=== PATIENT | female | born 1990 | race Two or more races ===

== ENCOUNTER 2017-09-04 18:11 | Emergency (ER) | payer SELFPAY ==
[~2017-09-04] VITALS: Ht 167.6 cm; Wt 56.7 kg
[~2017-09-04 18:11] MED LIST: ALBU18HF2 INH; FLUT1DIS3 IH
[2017-09-04] MEDS ORDERED: LORAZEPAM 1 MG TABLET PO ONE (19:00)
[2017-09-04] MEDS ORDERED: IV NS 0.9% 1,000 ML BAG IV ONE ×3 (19:00→22:30)
--- NOTE | 2017-09-04 19:00 | NUR ---
BB RA; PALPITATIONS, NAD NOTED, VSS, RESP EVEN AND UNLABORED. PT PUT ON MONITOR AND HOSPITAL GOWN. WAITING FOR MD [place].
[2017-09-04] MEDS ORDERED: LORAZEPAM 1 MG TABLET ONE (19:07)
[2017-09-04 22:24] VITALS: BP 111/57
== END 2017-09-04 23:25 | disposition home or self-care (01) ==
LOC: ER 18:14
DX: R00.2 Palpitations (principal); E86.0 Dehydration; F41.9 Anxiety disorder, unspecified; J45.909 Unspecified asthma, uncomplicated; F10.10 Alcohol abuse, uncomplicated
CPT/HCPCS: A4606; J7030; Z7610

== ENCOUNTER 2025-01-02 13:57 | Emergency (ER) | payer OTHER ==
[~2025-01-02] VITALS: Ht 162.6 cm; Wt 68.0 kg
[2025-01-02] MEDS: IV NS 0.9% 1,000 ML BAG IV ONE (14:25)
[2025-01-02 14:31] LABS: BASOPHILS % (AUTO) 0.5 % (0.0-2.0); EOSINOPHILS # (AUTO) 0.3 K/uL (0.0-0.7); EOSINOPHILS % (AUTO) 2.9 % (0.0-6.0); HEMATOCRIT 37 % (33-45); HEMOGLOBIN 12.5 g/dL (11.5-14.8); LYMPHOCYTES # (AUTO) 2.1 K/uL (0.8-4.8); LYMPHOCYTES % (AUTO) 22.6 % (20.0-44.0); MEAN CORPUSCULAR HEMOGLOBIN 30 PG (26.0-33.0); MEAN CORPUSCULAR HGB CONC 34 g/dl (31.0-36.0); MEAN CORPUSCULAR VOLUME 89 fL (82-100); MONOCYTES # (AUTO) 0.6 K/uL (0.1-1.30); MONOCYTES % (AUTO) 6.5 % (2.0-12.0); NEUTROPHILS # (AUTO) 6.2 K/uL (1.8-8.9); NEUTROPHILS % (AUTO) 67.5 % (43.0-81.0); PLATELET COUNT (AUTO) 350 K/uL (150-450); RED BLOOD CELL COUNT(AUTO) 4.19 MIL/uL (4.0-5.2); RED CELL DISTRIBUTION WIDTH 15.3 % (11.5-15.0); WHITE BLOOD COUNT (AUTO) 9.1 K/uL (4.3-11.0)
[2025-01-02 14:37] LABS: PREGNANCY TEST URINE QUAL NEGATIVE (NEGATIVE)
[2025-01-02 14:38] LABS: CALCIUM, SERUM 8.7 mg/dL (8.5-10.1); CREATININE 0.7 mg/dL (0.6-1.3); POTASSIUM 3.8 mmol/L (3.5-5.1)
[2025-01-02 17:16] LABS: APPEARANCE,URINE CLOUDY (CLEAR); COLOR,URINE RED (YELLOW)
[2025-01-02 17:20] LABS: RBC,URINE TOO NUMEROUS TO COUN /HPF (0-2); SQUAMOUS EPITHELIAL CELL,UR None Seen /HPF (None Seen); WBC,URINE 0-2 /HPF (0-3)
[2025-01-02 17:21] LABS: BACTERIA,URINE Rare /HPF (None Seen)
[2025-01-02 19:12] VITALS: BP 119/63; TEMP 97.7; O2SAT 100
== END 2025-01-02 19:10 | disposition home or self-care (01) ==
LOC: ER 14:00
DX: I95.1 Orthostatic hypotension (principal); J45.909 Unspecified asthma, uncomplicated; R10.31 Right lower quadrant pain; Z79.51 Long term (current) use of inhaled steroids; F41.9 Anxiety disorder, unspecified; Z87.448 Personal history of other diseases of urinary system
CPT/HCPCS: 99285; 96360; 76856; 71045; 93005; 85025; 80048; 84703; 81001; 36415; 84443; J7030

== ENCOUNTER 2025-02-02 19:31 | Emergency (ER) | payer OTHER | END 2025-02-02 22:03 | disposition left against medical advice (07) | LOC: ER 19:32 | DX: R55 Syncope and collapse (principal); Z53.21 Procedure and treatment not carried out due to patient leaving prior to being seen by health care provider ==